=== PATIENT | male | born 1975 | race Caucasian/White ===

== ENCOUNTER 2016-10-13 13:18 | Emergency (ER) | payer SELFPAY ==
[~2016-10-13] VITALS: Ht 180.3 cm; Wt 92.5 kg
--- NOTE | 2016-10-13 13:57 | ED GI/GU/ABDOMINAL COMPLAINT ---
History of Present Illness General Chief Complaint: Male Genitourinary Problems Stated Complaint: RIGHT LOWER BACK PAIN Source: patient Exam Limitations: no limitations Vital Signs & Intake/Output Vital Signs & Intake/Output Vital Signs Date Time Temp Pulse Resp B/P B/P Pulse O2 O2 Flow FiO2 Mean Ox Delivery Rate 10/13 1559 98.5 89 18 142/88 97 Room Air Room Air 10/13 1325 98.1 107 20 170/105 99 Room Air Allergies Coded Allergies: No Known Allergies (10/13/16) Reconcile Medications Ciprofloxacin HCl (Cipro) 500 MG TABLET 1 TAB PO BID UTI Oxycodone HCl/Acetaminophen (Percocet 5-325 MG Tablet) 5 MG-325 MG TABLET 1-2 TAB PO Q6P PRN PAIN Tamsulosin HCl (Flomax) 0.4 MG CAP.ER.24H 1 CAP PO DAILY KIDNEY STONE Triage Note: RIGHT FLANK PAIN X 3 WEEKS ON AND OFF. HX OF KIDNEY STONES. DX WITH 3 MM STONE LAST MONTH Triage Nurses Notes Reviewed? yes Onset: Abrupt Duration: week(s): (3), waxing and waning Timing: recent history Quality/Severity: moderate, sharpness, severe Location: left flank Radiation: no radiation Activities at Onset: none No Modifying Factors: none HPI: 40-year-old male comes into emergency room for further evaluation of left flank pain and left-sided abdominal pain has been going on for 3 weeks intermittently. Symptoms have been been persistent intermittently. Sharp pains. Some urgency with urination. Denies any fever chills vomiting. Patient was seen at [facility] initially and told that he had a 3 mm stone. Patient was given pain medication and Flomax to go home with. Patient does not have insurance and therefore has not followed up with a urologist. Pain was severe in nature last night so he comes back in for further evaluation. (ELISABETH OAKES) Past History Travel History Traveled to [place] past 21 day No Medical History Any Pertinent Medical History? none Surgical History Surgical History: non-contributory Psychosocial History What is your primary language Mexican Tobacco Use: Never used ETOH Use: occasional use Illicit Drug Use: denies illicit drug use Family History Hx Contributory? No (ELISABETH OAKES) Review of Systems Review of Systems Constitutional: Reports: no symptoms. EENTM: Reports: no symptoms. Respiratory: Reports: no symptoms. Cardiovascular: Reports: no symptoms. GI: Reports: see HPI. Genitourinary: Reports: see HPI. Musculoskeletal: Reports: no symptoms. Skin: Reports: no symptoms. Neurological/Psychological: Reports: no symptoms. Hematologic/Endocrine: Reports: no symptoms. Immunologic/Allergic: Reports: no symptoms. All Other Systems: Reviewed and Negative (ELISABETH OAKES) Physical Exam Physical Exam General Appearance: well developed/nourished, alert, awake Head: atraumatic Eyes: Bilateral: normal appearance. Ears, Nose, Throat, Mouth: hearing grossly normal, moist mucous membrane Neck: normal inspection Respiratory: normal breath sounds, no respiratory distress Cardiovascular: regular rate/rhythm Gastrointestinal: soft, non-tender Back: normal inspection, normal range of motion, no cva tenderness Extremities: normal range of motion Neurologic/Psych: awake, alert, oriented x 3, normal gait, normal mood/affect Skin: intact, normal color Core Measures ACS in differential dx? No Severe Sepsis Present: No Septic Shock Present: No (ELISABETH OAKES) Progress Differential Diagnosis: appendicitis, biliary colic, bowel obstruction, cholecystitis, diverticulitis, gastritis, hepatitis, pancreatitis, SBO, STD, testicular torsion, ureterolithiasis, urinary retention, urethritis, UTI/pyelo Plan of Care: Orders Procedure Date/time Status Add-on Test (ER Only) 10/13 1435 Active COMPREHENSIVE METABOLIC PANEL 10/13 1357 Complete CBC WITHOUT DIFFERENTIAL 10/13 1357 Complete CULTURE,URINE 10/13 1338 Active URINALYSIS 10/13 1338 Complete Laboratory Tests 10/13/16 1430: Anion Gap 11, Estimated GFR > 60, BUN/Creatinine Ratio 13.3, Glucose 94, Calcium 9.4, Total Bilirubin 0.5, AST 21, ALT 32, Alkaline Phosphatase 68, Total Protein 7.2, Albumin 4.4, Globulin 2.8, Albumin/Globulin Ratio 1.6, CBC w Diff NO MAN DIFF REQ, RBC 4.87, MCV 89.4, MCH 30.3, RDW 13.6, MPV 7.3 L, Gran % 85.9 H, Lymphocytes % 7.7 L, Monocytes % 5.9, Eosinophils % 0.1, Basophils % 0.4, Absolute Granulocytes 13.5 H, Absolute Lymphocytes 1.2, Absolute Monocytes 0.9 H, Absolute Eosinophils 0, Absolute Basophils 0.1, PUBS MCHC 33.8 10/13/16 1340: Urine Color YEL, Urine Clarity CLEAR, Urine pH 6.5, Ur Specific [place] 1.010, Urine Protein NEG, Urine Ketones NEG, Urine Nitrite NEG, Urine Bilirubin NEG, Urine Urobilinogen 0.2, Ur Leukocyte Esterase MOD H, Ur Microscopic SEDIMENT EXAMINED, Urine RBC 25-50 H, Urine WBC 15-25 H, Ur Epithelial Cells RARE, Urine Bacteria MOD H, Urine Mucus FEW, Urine Hemoglobin MOD H, Urine Glucose NEG Microbiology 10/13 1340 URINE ROUT: Urine Culture - RECD Diagnostic Imaging: Viewed by Me: CT Scan. Discussed w/RAD: CT Scan. Radiology Impression: PATIENT: PAMELA MUNROE PRESENT AGE: 40 PATIENT ACCOUNT NO: [id number] : 77 LOCATION: [facility] ORDERING PHYSICIAN: ELISABETH SHEEHAN SERVICE DATE: 10/13/16 EXAM TYPE : CAT - CT ABD & PELVIS W/O IV CONTRAS EXAMINATION: CT ABDOMEN AND PELVIS WITHOUT CONTRAST CLINICAL INFORMATION: Left flank pain. COMPARISON: None. TECHNIQUE: Multidetector volumetric imaging was performed from the superior aspect of the liver through the pubic symphysis. Sagittal and coronal reformatted images were obtained on the technologist's workstation. FINDINGS: LUNG BASES: The visualized lung bases are unremarkable. LIVER, GALLBLADDER, AND BILIARY TREE: The liver is normal in size, shape, and attenuation. No focal hepatic lesion or biliary ductal dilatation is present. The gallbladder is unremarkable with no evidence of radiopaque gallstones, gallbladder wall thickening, or obvious pericholecystic inflammatory changes. PANCREAS: Unremarkable. SPLEEN: Unremarkable. Small splenule present. ADRENAL GLANDS: Unremarkable. KIDNEYS AND URETERS: Right kidney: There are 3 nonobstructing calculi in the right kidney. 5 mm calculus in the upper pole, 2 mm calculus in the midpole, 4 mm calculus in the lower pole. No hydronephrosis. No right-sided ureteral calculi are seen. Left kidney: No renal calculi seen. There is mild left hydronephrosis. No radiopaque calculi are visualized within the left collecting system. There is a 3 mm and 2 mm calculus in the dependent portion of the bladder, suggesting recently passed stones. No suspicious renal lesion seen on the noncontrast CT. Small calculi within the bladder, suggesting recently passed stones. BLADDER: Bladder wall appears unremarkable. GASTROINTESTINAL TRACT: Scattered colonic diverticuli. No evidence of diverticulitis. Appendix appears unremarkable. Normal caliber small bowel loops. No evidence of free fluid or free air. Small hiatal hernia. The stomach is nondistended. ABDOMINAL WALL: Small fat-containing umbilical hernia. LYMPH NODES: No pathologically enlarged lymph nodes are seen in the retroperitoneum, mesentery, pelvis. VASCULAR: Normal caliber aorta. PELVIC VISCERA: Prostate calcifications are noted. Seminal vesicles are symmetric. OSSEOUS STRUCTURES: There is anterior wedging of multiple thoracic vertebral bodies, with endplate changes, with resulting kyphosis. This is age indeterminate, the appearance is suggestive of a chronic process. Clinically correlate. Further evaluation with MRI as clinically warranted. Minimal retrolisthesis of L1 on L2. Small nonaggressive sclerotic focus in the proximal right femur. IMPRESSION: 1. Nonobstructing right renal calculi largest measuring 5 mm. 2. Mild left hydronephrosis. There are 2 calculi within the bladder, suggesting recently passed stones. Otherwise, no radiopaque renal or ureteral calculi identified. DICTATED BY: LORETA COOPER MD DATE/TIME DICTATED:10/13/161430 PROGRAMMER ANALYST HEALTH IT:GEN DATE/TIME TRANSCRIBED:1430 CONFIDENTIAL, DO NOT COPY WITHOUT APPROPRIATE AUTHORIZATION. < Electronically signed in Other Vendor System> SIGNED BY: LORETA COOPER MD 10/13/16 1518 Initial ED EKG: none (KAI SHEEHAN,ELISABETH) Departure Departure Disposition: HOME OR SELF CARE Condition: Stable Clinical Impression Primary Impression: Kidney stone on left side Referrals: GHANSHYAM RODRIGUEZ MD PATIENT HAS NO PRIMARY CARE DR (PCP/Family) Additional Instructions: Follow-up with urologist provided. Take Percocet Flomax and ciprofloxacin as prescribed. Return immediately if any concerns worsening symptoms. Stay hydrated and drink plenty of fluids. You need to apply for health insurance. Please go over all results of today's visit with your primary care doctor. Contact your primary care doctor to let them know you were here in the emergency room. There may be nonspecific findings which may not be related to your visit today here in the emergency room but may require further evaluation and chronic monitoring by your primary care doctor. If you had a laceration today the chance of foreign body always remains. You should follow-up with your primary care doctor for recheck in 3-5 days for a wound check. If you had an x-ray done there is a chance that a fracture could have been missed on initial read and you should follow-up with your primary care doctor for repeat x-rays if symptoms persist. If your blood pressure was elevated here in the emergency room please have rechecked by her primary care doctor within the next 48 hours by your primary care doctor. If you were prescribed a narcotic here in the emergency room or any type of controlled substances you're not allowed to drive while taking this medication or operate any type of heavy machinery. Narcotics can make you feel lightheaded dizziness nausea and can cause constipation. You may need to mixing picker tender a stool softener. Thank you for choosing [facility] emergency room. Please return to the emergency room immediately if you have any other concerns worsening of symptoms. Departure Forms: Customer Survey General Discharge Information Prescriptions: Current Visit Scripts Oxycodone HCl/Acetaminophen (Percocet 5-325 MG Tablet) 1-2 TAB PO Q6P PRN PAIN #15 TAB Tamsulosin HCl (Flomax) 1 CAP PO DAILY #7 CAP Ciprofloxacin HCl (Cipro) 1 TAB PO BID #14 TAB Comments 10/13/2016 5:05:55 PM Patient clinically looks well. He feels better after IV medications. Patient appears to have passed a recent kidney stone in the left side. Patient is a white count with some signs of infection in the urine. Patient started on ciprofloxacin. Urine culture sent. Patient afebrile. At this time patient can follow-up with urology as an outpatient. Return if any other concerns worsening symptoms. Reevaluated multiple times. He understands and agrees with plan of care. (ELISABETH OAKES) PA/IN CLASS SPECIAL EDUCATION TEACHER Co-Sign Statement Statement: ED Attending supervision documentation- I saw and evaluated the patient. I have also reviewed all the pertinent lab results and diagnostic results. I agree with the findings and the plan of care as documented in the PA's/IN CLASS SPECIAL EDUCATION TEACHER's documentation. x I have reviewed the ED Record and agree with the PA's/IN CLASS SPECIAL EDUCATION TEACHER's documentation. [] Additions or exceptions (if any) to the PAs/IN CLASS SPECIAL EDUCATION TEACHER's note and plan are summarized below: [] (HIPONA MD,SHANNA)
[2016-10-13 14:35] LABS: ABSOLUTE BASOPHIL COUNT 0.1 /CUMM (0.0-0.2); ABSOLUTE EOSINOPHIL COUNT 0 /CUMM (0.0-0.7); ABSOLUTE GRANULOCYTE CT 13.5 /CUMM (1.4-6.5); ABSOLUTE LYMPH COUNT 1.2 /CUMM (1.2-3.4); ABSOLUTE MONOCYTE COUNT 0.9 /CUMM (0.10-0.60); BASOPHIL % 0.4 % (0.0-2.0); EOSINOPHIL % 0.1 % (0-5); HEMATOCRIT 43.5 % (42-52); MEAN CORPUSCULAR HGB 30.3 PG (27.0-31.0); MEAN CORPUSCULAR HGB CONC 33.8 G/DL (33.0-37.0); MEAN CORPUSCULAR VOLUME 89.4 FL (80.0-94.0); MEAN PLATELET VOLUME 7.3 FL (7.4-10.4); PLATELET COUNT 333 /CUMM (130-400); RBC DISTRIBUTION WIDTH 13.6 % (11.5-14.5); RED BLOOD CELL CT 4.87 /CUMM (4.70-6.10); WHITE BLOOD CELL COUNT 15.8 /CUMM (4.8-10.8)
[2016-10-13 14:54] LABS: GRANULOCYTE % 85.9 % (42.2-75.2)
--- NOTE | 2016-10-13 15:18 | CT SCAN REPORT ---
EXAMINATION: CT ABDOMEN AND PELVIS WITHOUT CONTRAST CLINICAL INFORMATION: Left flank pain. COMPARISON: None. TECHNIQUE: Multidetector volumetric imaging was performed from the superior aspect of the liver through the pubic symphysis. Sagittal and coronal reformatted images were obtained on the technologist's workstation. FINDINGS: LUNG BASES: The visualized lung bases are unremarkable. LIVER, GALLBLADDER, AND BILIARY TREE: The liver is normal in size, shape, and attenuation. No focal hepatic lesion or biliary ductal dilatation is present. The gallbladder is unremarkable with no evidence of radiopaque gallstones, gallbladder wall thickening, or obvious pericholecystic inflammatory changes. PANCREAS: Unremarkable. SPLEEN: Unremarkable. Small splenule present. ADRENAL GLANDS: Unremarkable. KIDNEYS AND URETERS: Right kidney: There are 3 nonobstructing calculi in the right kidney. 5 mm calculus in the upper pole, 2 mm calculus in the midpole, 4 mm calculus in the lower pole. No hydronephrosis. No right-sided ureteral calculi are seen. Left kidney: No renal calculi seen. There is mild left hydronephrosis. No radiopaque calculi are visualized within the left collecting system. There is a 3 mm and 2 mm calculus in the dependent portion of the bladder, suggesting recently passed stones. No suspicious renal lesion seen on the noncontrast CT. Small calculi within the bladder, suggesting recently passed stones. BLADDER: Bladder wall appears unremarkable. GASTROINTESTINAL TRACT: Scattered colonic diverticuli. No evidence of diverticulitis. Appendix appears unremarkable. Normal caliber small bowel loops. No evidence of free fluid or free air. Small hiatal hernia. The stomach is nondistended. ABDOMINAL WALL: Small fat-containing umbilical hernia. LYMPH NODES: No pathologically enlarged lymph nodes are seen in the retroperitoneum, mesentery, pelvis. VASCULAR: Normal caliber aorta. PELVIC VISCERA: Prostate calcifications are noted. Seminal vesicles are symmetric. OSSEOUS STRUCTURES: There is anterior wedging of multiple thoracic vertebral bodies, with endplate changes, with resulting kyphosis. This is age indeterminate, the appearance is suggestive of a chronic process. Clinically correlate. Further evaluation with MRI as clinically warranted. Minimal retrolisthesis of L1 on L2. Small nonaggressive sclerotic focus in the proximal right femur. IMPRESSION: 1. Nonobstructing right renal calculi largest measuring 5 mm. 2. Mild left hydronephrosis. There are 2 calculi within the bladder, suggesting recently passed stones. Otherwise, no radiopaque renal or ureteral calculi identified.
[2016-10-13] MEDS ORDERED: PERCOCET 5-3251 EACH PO (15:42)
[2016-10-13] MEDS ORDERED: CIPRO500 M1 PO (15:42)
[2016-10-13] MEDS ORDERED: FLOMAX0.4 M1 PO (15:42)
[2016-10-13 15:59] VITALS: BP 142/88
== END 2016-10-13 15:59 ==
LOC: ERH 13:18
PROVIDERS: Physician Assistant Medical
DX: N20.0 Calculus of kidney (principal)
CPT/HCPCS: 74176; 81001; 87086; 96374; 96375; J1885; J2405